=== PATIENT | female | born 1940 | race Two or more races ===

== ENCOUNTER 2018-04-09 11:36 | Emergency (ER) | payer OTHER ==
[~2018-04-09] VITALS: Ht 154.9 cm; Wt 71.7 kg
[2018-04-09] MEDS ORDERED: LIPITOR20 MG (11:54)
[2018-04-09] MEDS ORDERED: VASOTEC20 MG (11:54)
== END 2018-04-09 14:58 | disposition home or self-care (01) ==
LOC: ER 11:36
DX: M75.101 Unspecified rotator cuff tear or rupture of right shoulder, not specified as traumatic (principal); M25.511 Pain in right shoulder

== ENCOUNTER 2018-04-13 13:51 | Outpatient (CLI) | payer OTHER ==
[~2018-04-13 13:51] MED LIST: LIPITOR20 MG; VASOTEC20 MG
== END 2018-04-13 13:59 | disposition home or self-care (01) ==
LOC: SONOGRAMA 13:51
DX: M75.100 Unspecified rotator cuff tear or rupture of unspecified shoulder, not specified as traumatic (principal)